=== PATIENT | female | born 1970 | race Caucasian/White ===

== ENCOUNTER 2021-12-13 13:18 | Emergency (ER) | payer OTHER ==
[2021-12-13 14:49] LABS: BILIRUBIN NEGATIVE (NEGATIVE); BLOOD 2+ Ery/uL (NEGATIVE); CLARITY CLEAR (CLEAR); COLOR YELLOW (YELLOW); GLUCOSE (U) NORMAL (NORMAL); LEUKOCYTES NEGATIVE Leu/uL (NEGATIVE); NITRITE NEGATIVE (NEGATIVE); PROTEIN NEGATIVE (NEGATIVE); UROBILINOGEN 0.2 mg/dL (0.2-1.0); pH 6.5 (5.0-9.0)
[2021-12-13 15:07] LABS: BASOPHIL 0.9 % (0-2); EOSINOPHIL 1.6 % (0-5); HCT 45.3 % (37.0-47.0); HGB 15.3 g/dl (12.5-16.0); LYMPHOCYTE 30.5 % (15-48); MCH 31.2 pg (25.0-31.0); MCHC 33.8 g/dL (32.0-36.0); MCV 92.4 fL (78.0-100.0); MONOCYTE 10.4 % (0-12); MPV 11.2 fL (6.0-9.5); NEUTROPHIL 56.1 % (41-80); NRBC 0; PLT 292 K/uL (150-400); RDW 12.3 % (11.5-14.0)
[2021-12-13 15:34] LABS: ALBUMIN 3.8 g/dL (3.4-5.0); BILIRUBIN - TOTAL 0.3 mg/dL (0.2-1.0); BUN/CREAT RATIO (CALC) 15.5 RATIO; CREATININE 0.71 mg/dL (0.51-0.95); GLOBULIN (CALCULATION) 3.6 g/dL; POTASSIUM 4.4 mmol/L (3.5-5.1); TOTAL PROTEIN 7.4 g/dL (6.4-8.2)
== END 2021-12-13 16:26 | disposition home or self-care (01) ==
LOC: FER 13:18
PROVIDERS: Physician Assistant
DX: N20.0 Calculus of kidney (principal); R51.9 Headache, unspecified; I10 Essential (primary) hypertension; J44.9 Chronic obstructive pulmonary disease, unspecified; F17.210 Nicotine dependence, cigarettes, uncomplicated
CPT/HCPCS: 36415; 80053; 81001; 85025; J1885